=== PATIENT | male | born 1945 | race Caucasian/White ===

== ENCOUNTER 2018-09-20 20:08 | Inpatient (IN) | payer MEDICARE, OTHER ==
[~2018-09-20] VITALS: Ht 182.9 cm; Wt 80.9 kg
--- NOTE | 2018-09-20 22:15 | NUR ---
PT ADMITTED DIRECT FROM [facility] PER [facility]IVATE CAR. HAS [employer] CATHETER UPON ADMISSION. NOTIFIED DR SPRAGUE. SET UP FOR CBI COMPLETED. SON AT PT SIDE. VERY SUPPORT.
[2018-09-20 22:18] VITALS: BP 152/81; PULSE 90; TEMP 98.1
[2018-09-21] VITALS: BP 148/67; PULSE 85; TEMP 98.4
--- NOTE | 2018-09-21 | NUR ---
CBI RATE IS FAST WITH RED RETURN WITH SOME BLOOD CLOTS NOTED. HAVING VERY MILD BLADDER SPASMS. NPO AT MIDNIGHT. RESTING.
[2018-09-21] MEDS ORDERED: ASPIRIN 81M81 MG/TA2 PO (00:28)
[2018-09-21] MEDS ORDERED: PLAVIX 75MG TAB75 MG PO (00:29)
[2018-09-21] MEDS ORDERED: LIPITOR 40MG TA40 MG PO (00:30)
[2018-09-21] MEDS ORDERED: LOPRESSOR 550 MG/TAB PO (00:31)
[2018-09-21] MEDS ORDERED: FLOMAX 0.40.4 MG/CAP PO (00:32)
[2018-09-21] MEDS ORDERED: FLONASE NASAL S16 GM NS (00:32)
[2018-09-21] MEDS ORDERED: CIPRO 500MG TA500 MG PO (00:34)
[2018-09-21] MEDS ORDERED: FLONASEALLERGY NS (00:45)
[2018-09-21] MEDS ORDERED: ISOSORBIDE MON120 MG PO (00:54)
[2018-09-21] MEDS ORDERED: VASOTEC 10M10 MG/TAB PO (00:57)
[2018-09-21] MEDS ORDERED: PRILOTC (00:59)
[2018-09-21] MEDS ORDERED: NITROSTAT0.4 MG/TAB SL (01:00)
--- NOTE | 2018-09-21 02:52 | NUR ---
PT REPORTS BLADDER SPASMS INTERMITTENLY. CBI INFUSING AT MED RATE WITH YELLOWISH PINK URINE COLOR. NO CLOTS AT THIS TIME.
[2018-09-21 03:30] VITALS: BP 150/70; PULSE 81; TEMP 98.2
--- NOTE | 2018-09-21 06:10 | NUR ---
UA CAN NOT BE OBTAINED WITH CBI INFUSING.
--- NOTE | 2018-09-21 06:34 | NUR ---
PATIENT RESTING QUIETLY. NO EVIDENCE OF PAIN.CBI CONTINUES AT A SLOWER RATE. URINE REMAINS MORE YELLOW WITH PINK TINGE. NO BLOOD CLOTS.
[2018-09-21 07:32] VITALS: BP 150/74; PULSE 83; TEMP 97.7
[2018-09-21 07:43] LABS: HEMOGLOBIN 11.7 g/dl (13.5-18.0); MEAN CELL VOLUME 89 fl (80.0-100.0); MEAN CORPUSCULAR HEMOGLOBIN 30 pg (27.0-31.0); MEAN CORPUSCULAR HGB CONC 34 g/dl (33.0-37.0); MEAN PLATELET VOLUME 8.5 fl (7.4-10.4); PLATELET COUNT 179 K/mm3 (130-400); RED BLOOD COUNT 3.89 M/mm3 (4.20-5.60); REDCELL DISTRIBUTION WIDTH-CV 12.4 % (11.5-14.5)
[2018-09-21 08:07] LABS: HEMATOCRIT 34.5 % (42.0-52.0)
[2018-09-21 11:52] VITALS: BP 156/69; PULSE 85; TEMP 99.1
--- NOTE | 2018-09-21 12:19 | NUR ---
Patient lives at home with his (Farzaneh Montesinos [phone]) in [place], [place] and plans to return home upon recovery. Patient is scheduled for a TURP with Dr. Blanca later this week. Patient receives support as needed from his family including his (Farzaneh) and his children Jose De Jesus Montesinos [phone] and Tammie Damon [phone]). Patient's primary care physician is Dr. Hunter Murray and his global sales manager is Dr. Presley, his pharmacy is [facility], and he does not have advance directives of healthcare completed at this time. No further needs and psychologist social will follow as needed.
--- NOTE | 2018-09-21 15:45 | NUR ---
Patient arrives to floor from PACU via bed. Patient is alert and oriented, answers questions appropriately. Patient is sleepy, but rouses easily. Post op checks initiated. CBI per orders, urine is clear, CBI turned down. Patient denies pain or needs, call light within reach.
[2018-09-21 20:00] VITALS: BP 144/76; PULSE 101; TEMP 98.2
[2018-09-21 23:51] VITALS: BP 119/54; PULSE 85; TEMP 99.2
[2018-09-22 04:00] VITALS: BP 114/59; PULSE 82; TEMP 98.1
[2018-09-22 07:08] VITALS: BP 120/55; PULSE 70; TEMP 98.8
--- NOTE | 2018-09-22 08:00 | NUR ---
Dr Lentz is here to see patient. He ordered the CBI to be clamped. Patient will be discharged with church catheter. Patient has had a church catheter at home before. He stated he is comfortable with taking care of it at home. He wants to wait to wear the legbag home and will wear his large bag. No other changes at this time. Call light within reach.
--- NOTE | 2018-09-22 11:28 | NUR ---
First visit from the estimator printing. No needs right now.
[2018-09-22 12:15] VITALS: BP 107/54; PULSE 69; TEMP 98.1
--- NOTE | 2018-09-22 15:15 | NUR ---
Patient is discharging home. Discharge questions discussed with patient. No questions verbalized. INT discontinued. Sent patient home with a leg bad and an additional large church bag. Patient know he will be back Saturday for a TURP. He has already been scheduled for that procedure. Copies of discharge instructions sent with patient. All belongings packed up and sent with patient. Patient walked out via wheel chair by Sushma SILVEIRA.
== END 2018-09-22 15:15 | disposition home or self-care (01) | DRG 667 ==
LOC: MEDICAL 20:08 → SURG 21:52
PROVIDERS: ADMIT Urology
PROC: 0TCB8ZZ Extirpation of Matter from Bladder, Via Natural or Artificial Opening Endoscopic (ICD-10-PCS; 2018-09-21)
PROC: 0V508ZZ Destruction of Prostate, Via Natural or Artificial Opening Endoscopic (ICD-10-PCS; principal; 2018-09-21 12:00)
PROC: 0T5C8ZZ Destruction of Bladder Neck, Via Natural or Artificial Opening Endoscopic (ICD-10-PCS; 2018-09-21 12:00)
DX: R31.0 Gross hematuria (principal); N40.0 Benign prostatic hyperplasia without lower urinary tract symptoms; Z79.02 Long term (current) use of antithrombotics/antiplatelets; I25.10 Atherosclerotic heart disease of native coronary artery without angina pectoris; E78.5 Hyperlipidemia, unspecified; I10 Essential (primary) hypertension; R33.8 Other retention of urine; K21.9 Gastro-esophageal reflux disease without esophagitis; F17.200 Nicotine dependence, unspecified, uncomplicated; Z87.442 Personal history of urinary calculi; Z95.1 Presence of aortocoronary bypass graft; Z95.5 Presence of coronary angioplasty implant and graft; I25.2 Old myocardial infarction; Z85.51 Personal history of malignant neoplasm of bladder
CPT/HCPCS: J0330; J0690; J1956; J2704; J3010; J7030